=== PATIENT | female | born 1970 | race Caucasian/White ===

== ENCOUNTER 2022-04-26 14:17 | Emergency (ER) | payer OTHER, SELFPAY ==
[2022-04-26 14:18] VITALS: BP 145/85; PULSE 54; RESP 20; TEMP 36.8; BMI 33.8
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
[2022-04-26] MEDS: Rabies Immune Globulin/PF 300 UNIT/ML, 5 ML VIAL 2010 UNIT IM (16:04)
[2022-04-26] MEDS: Rabies Vaccine,Human Diploid 2.5 UNITS Vial IM (16:43)
[2022-04-26 16:47] VITALS: BP 138/74; PULSE 63; RESP 15; O2SAT 98
== END 2022-04-26 16:48 | disposition home or self-care (01) ==
LOC: ED 14:51
PROVIDERS: Emergency Provider Emergency Medicine; PCP Family Medicine; Visit Provider Emergency Medicine
DX: Z20.3 Contact with and (suspected) exposure to rabies (principal); Z87.891 Personal history of nicotine dependence
CPT/HCPCS: 90675; 99283; 90375